=== PATIENT | male | born 1980 | race Caucasian/White ===

== ENCOUNTER 2017-03-28 19:46 | Emergency (ER) | payer OTHER ==
[2017-03-28] MEDS ORDERED: TETRACAINE HCL 0.5% OPHTH SOL 1 DROP OPHTH ONE (20:00)
[2017-03-28] MEDS ORDERED: GENTAMICIN 0.3% OPHTH SOL 1 DROP OPHTH ONE (20:00)
--- NOTE | 2017-03-28 20:13 | ED.PDOC ---
History of Present Illness - General Chief Complaint: ENT Problem Stated Complaint: foreign body in the left eye Time Seen by Provider: 03/28/17 20:01 Source: patient Exam Limitations: no limitations - History of Present Illness Initial Comments: Patient presents with left eye pain. It started while he was grinding metal. He did have safety goggles on but some metal got past them. He has had previous episodes of this problem. Pain is aching and non-radiating. No other complaints. Timing/Duration: abrupt Severity: moderate EENT Location: eye (L) Prearrival Treatment: no prearrival treatment Improving Factors: nothing Worsening Factors: nothing Associated Symptoms: denies symptoms Review of Systems - Review of Systems Constitutional: States: no symptoms reported EENTM: States: see HPI Respiratory: States: no symptoms reported Cardiology: States: no symptoms reported Gastrointestinal/Abdominal: States: no symptoms reported Genitourinary: States: no symptoms reported Musculoskeletal: States: no symptoms reported Skin: States: no symptoms reported Neurological: States: no symptoms reported Endocrine: States: no symptoms reported Hematologic/Lymphatic: States: no symptoms reported Physical Exam - Physical Exam General Appearance: Alert Eye Exam: right normal, left other - Wood's lamp exam showed metallic foreign body lodged at 8 o-clock position of left iris. Cardiovascular/Respiratory: regular rate, rhythm Progress - Progress Progress: 03/28/17 20:15 Two drops of tetracaine used to gain excellent local anesthesia. Ophthalmologic drill used to remove metallic fragment. Left eye irrigated with 500 cc of sterile NS using a Joseph lens. Patient sent home with gentamycin ophthalmic drops 0.3% one drop q 4 hours while awake for 7 days. Departure - Departure Clinical Impression: Foreign body in eye Disposition: Discharge to Home or Self Care Condition: Good Diet: resume usual diet Activity: increase activity as tolerated Referrals: Otf Saleh III, MD [Primary Care Provider] - 1-2 Weeks Additional Instructions: Use medication as directed. One drop in the left eye every four hours while awake for one week. 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 May use ibuprofen as directed for pain control or cool compresses.
[2017-03-28] MEDS ORDERED: SODIUM CHLORIDE 0.9% 500ML 500 ML ONE (20:14)
[2017-03-28 21:36] VITALS: BP 136/83; TEMP 98.5; O2SAT 97
== END 2017-03-28 20:40 | disposition home or self-care (01) ==
LOC: ER 19:46
DX: T15.92XA Foreign body on external eye, part unspecified, left eye, initial encounter (principal); X58.XXXA Exposure to other specified factors, initial encounter

== ENCOUNTER → 2018-11-05 | Outpatient (CLI) | payer OTHER | LOC: GMATM 12:04 | PROVIDERS: ATTEND Nurse Practitioner Family | DX: E29.1 Testicular hypofunction (principal) ==

== ENCOUNTER → 2019-06-17 | Outpatient (CLI) | payer OTHER | LOC: GMAL 10:25 | PROVIDERS: ATTEND Family Medicine | DX: Z00.00 Encounter for general adult medical examination without abnormal findings (principal); E29.1 Testicular hypofunction ==

== ENCOUNTER → 2019-07-09 | Outpatient (CLI) | payer OTHER | LOC: GMAL 10:31 | PROVIDERS: ATTEND Family Medicine | DX: E34.9 Endocrine disorder, unspecified (principal); R03.0 Elevated blood-pressure reading, without diagnosis of hypertension ==

== ENCOUNTER → 2020-02-16 | Outpatient (CLI) | payer OTHER | LOC: GMAL 14:40 | PROVIDERS: ATTEND Family Medicine | DX: E29.1 Testicular hypofunction (principal); D45 Polycythemia vera ==

== ENCOUNTER → 2020-08-22 | Outpatient (CLI) | payer OTHER | LOC: GMAL 10:27 | PROVIDERS: ATTEND Family Medicine | DX: Z00.01 Encounter for general adult medical examination with abnormal findings (principal); I10 Essential (primary) hypertension; E29.1 Testicular hypofunction; Z13.220 Encounter for screening for lipoid disorders ==

== ENCOUNTER 2020-09-24 17:27 | Emergency (ER) | payer OTHER ==
[2020-09-24] MEDS ORDERED: LIDOCAINE 1% 10 ML VIAL INJ ONE (17:41)
[2020-09-24] MEDS ORDERED: TETANUS-DIPHTHERIA TOXOIDS (TD) SYG IM ONE (17:49)
[2020-09-24 17:51] VITALS: O2SAT 95
[2020-09-24] MEDS ORDERED: TETANUS,DIPHTHERIA,PERTUSSIS 1 EA SYG IM ONE (17:57)
--- NOTE | 2020-09-24 18:00 | ED.PDOC ---
History of Present Illness - General Chief Complaint: Laceration Stated Complaint: 2cm laceration to L 3rd digit Time Seen by Provider: 09/24/20 17:37 Source: patient - History of Present Illness Timing/Duration: just prior to arrival Location: hands Improving Factors: nothing Worsening Factors: nothing Associated Symptoms: denies symptoms Allergies/Adverse Reactions: Allergies NO KNOWN ALLERGY Allergy (Verified 09/24/20 17:51) Home Medications: Ambulatory Orders Lisinopril 10 mg PO DAILY 09/24/20 Review of Systems - Review of Systems Constitutional: Denies: chills, fever EENTM: Denies: tearing, ear discharge Cardiology: Denies: chest pain, palpitations, syncope Gastrointestinal/Abdominal: Denies: abdominal pain, diarrhea, nausea Genitourinary: Denies: see HPI, frequency, hematuria Musculoskeletal: Denies: back pain Skin: States: other - laceration Endocrine: Denies: flushing, intolerance to cold All other Systems: Reviewed and Negative Past Medical History (General) - Patient Medical History Hx Stroke: No Hx of COPD: No Hx Cardiac Disorders: No Hx Congestive Heart Failure: No Hx Hypertension: Yes Hx Diabetes: No Hx Cancer: No Hx Hepatitis C: No Surgical History: no surgical history - Vaccination History Hx Tetanus, Diphtheria Vaccination: No Hx Influenza Vaccination: No Hx Pneumococcal Vaccination: No - Social History Hx Tobacco Use: No Hx Chewing Tobacco Use: No Hx Alcohol Use: Yes Hx Substance Use: No Hx Substance Use Treatment: No Hx Depression: No Hx Physical Abuse: No Hx Emotional Abuse: No Hx Suspected Abuse: No - Female History Patient is a Female of Child Bearing Age (10 -59 yrs old): No Patient : No Family Medical History - Family History Grandparents Family History: Unknown Physical Exam - Physical Exam General Appearance: Alert, Comfortable Eyes, Ears, Nose, Throat Exam: TMs normal, pharynx normal Neck: full range of motion, supple Cardiovascular/Chest: normal peripheral pulses, regular rate, rhythm, no edema, no gallop Respiratory: chest non-tender, lungs clear, normal breath sounds, no respiratory distress Gastrointestinal/Abdominal: normal bowel sounds, non tender, soft, no organomegaly, no pulsatile mass Extremity: normal range of motion, non-tender, normal inspection, no pedal edema, other - 2 cm laceration in lefth third finger Neurologic: forensic structural engineer II-XII nml as tested, no motor/sensory deficits, alert, normal mood/affect, oriented x 3, abnormal cerebellar tests, abnormal forensic structural engineer II-XII, abnormal gait Skin Exam: warm/dry, normal color Skin Problem Location: generalized Skin Character: other - 2cm laceration in left third finger Progress - Progress Progress: The patient is a 40-year-old male that presents to the emergency department with a 2 cm laceration in the left third finger. X-ray shows no foreign object no fractures. Laceration repaired. Tetanus shot administered discharge patient return precautions and follow-up instructions he verbalized understanding 09/24/20 17:59 Procedures - Laceration/Wound Repair Left Finger Wound's Depth, Shape: superficial Wound Explored: clean Irrigated w/ Saline (cc's): 200 Betadine Prep?: Yes Anesthesia: 1% Lidocaine Volume Anesthetic (cc's): 2 Wound Repaired With: sutures Suture Size/Type: 5:0 Number of Sutures: 6 Layer Closure?: Yes Sterile Dressing Applied?: Yes Splint Applied?: No Sling Applied?: No Departure - Departure Clinical Impression: Laceration of finger Disposition: Discharge to Home or Self Care Departure Forms: ED Discharge - Pt. Copy, Patient Portal Self Enrollment Instructions: DI for Laceration Repair, Wound Care (DC) Referrals: Otf Saleh III, MD [Primary Care Provider] - 1-2 Weeks Home Medications: Ambulatory Orders Lisinopril 10 mg PO DAILY 09/24/20 Comments: Please follow-up with your primary care physician or with the emergency department in 7 to 10 days for suture removal. Return to the emergency department immediately develop any signs of infections.
[2020-09-24] MEDS ORDERED: SULFA/TRIMETH 800/160 (DS) TAB 1 EA TAB PO ONE (18:28)
--- NOTE | 2020-09-24 18:31 | RAD ---
EXAM DESCRIPTION: XR Fingers, Left CLINICAL HISTORY: 40 years Male injury TECHNIQUE: Three views of the left third digit are provided. COMPARISON: No prior exams provided for comparison. FINDINGS: There is a laceration volar to the proximal interphalangeal joint without visualized radiodense foreign body. There is no acute fracture or dislocation. No aggressive osseous lesion. Visualized joint spaces are preserved. IMPRESSION: Laceration volar to the left third PIP joint. No acute fracture, dislocation, or radiodense foreign body. Electronically signed by: Roxane Buchanan MD 09/24/2020 6:30 PM [employer]UPATIONS INSTRU[employer]
[2020-09-24 18:43] VITALS: BP 118/75; TEMP 98.2
== END 2020-09-24 18:43 | disposition home or self-care (01) ==
LOC: ER 17:27
DX: S61.213A Laceration without foreign body of left middle finger without damage to nail, initial encounter (principal); I10 Essential (primary) hypertension; Z79.899 Other long term (current) drug therapy; W26.0XXA Contact with knife, initial encounter; Y92.9 Unspecified place or not applicable